=== PATIENT | male | born 1970 ===

== ENCOUNTER 2016-11-11 16:38 | Emergency (ER) | payer OTHER ==
[2016-11-11 17:19] VITALS: RESP 20; TEMP 98.7; O2SAT 96
--- NOTE | 2016-11-11 17:44 | C.PDOC ---
History Of Present Illness Pt was BIBEMS due to public alcohol intoxication. Time Seen by Provider: 11/11/16 17:25 Chief Complaint (Nursing): Substance Abuse History Per: Patient, EMS History/Exam Limitations: intoxication Onset/Duration Of Symptoms: Unknown (today) Current Symptoms Are (Timing): Still Present Suicide/Self Injury Attempted (Context): None Modifying Factor(s): Alcohol Severity: Moderate Associated Symptoms: denies: Suicidal Thoughts, Suicidal Plan Additional History Per: Family (Brother) Past Medical History Reviewed: Historical Data, Nursing Documentation, Vital Signs Vital Signs: Last Vital Signs Temp 98.7 F 11/11/16 17:00 Pulse 118 H 11/11/16 17:00 Resp 20 11/11/16 17:00 BP 170/93 H 11/11/16 17:00 Pulse Ox 96 11/11/16 17:00 - Medical History PMH: No Chronic Diseases Family History: States: Unknown Family Hx - Social History Hx Alcohol Use: Yes Hx Substance Use: No Review Of Systems Constitutional: Negative for: Fever, Weakness Cardiovascular: Negative for: Chest Pain Respiratory: Negative for: Shortness of Breath Gastrointestinal: Negative for: Vomiting, Abdominal Pain Musculoskeletal: Negative for: Neck Pain Neurological: Negative for: Weakness, Numbness, Seizures Psych: Negative for: Psychosis Physical Exam - Physical Exam Appears: Non-toxic, No Acute Distress, Other (AOB) Skin: Normal Color, Warm, Dry, No Rash Head: Atraumatic, Normacephalic Eye(s): bilateral: PERRL Neck: Normal ROM, No Midline Cervical Tenderness, No Step Off Deformity, Supple Chest: Symmetrical, No Deformity Cardiovascular: Rhythm Regular Respiratory: Normal Breath Sounds, No Accessory Muscle Use Gastrointestinal/Abdominal: Soft, No Tenderness Extremity: Normal ROM, No Deformity Neurological/Psych: Oriented x3, Normal Motor, Normal Sensation Gait: Steady ED Course And Treatment O2 Sat by Pulse Oximetry: 96 Pulse Ox Interpretation: Normal Progress Note: Pt wants to leave right now. His brother states he will take him home. Reassessment Condition: Improved Disposition Counseled Patient/Family Regarding: Diagnosis, Need For Followup - Disposition Referrals: [facility] [Outside] Disposition: HOME/ ROUTINE Disposition Time: 17:44 Condition: STABLE Additional Instructions: Avoid alcohol. Follow up in the clinic. Return to the ER if you develop worsening of symptoms or if you have any other concerns. Instructions: Alcohol Intoxication (ED) Print Language: SLOVENIAN - Clinical Impression Clinical Impression: Alcohol intoxication
[2016-11-11 17:59] VITALS: BP 169/88; PULSE 97
== END 2016-11-11 18:01 | disposition home or self-care (01) ==
LOC: C.ER 16:38
DX: F10.129 Alcohol abuse with intoxication, unspecified (principal)